=== PATIENT | male | born 1995 | race Caucasian/White ===

== ENCOUNTER 2018-05-23 14:00 | Emergency (ER) | payer OTHER ==
[~2018-05-23] VITALS: Ht 175.3 cm; Wt 86.4 kg
--- NOTE | 2018-05-23 15:12 | REP ---
Right ankle five views : There is no fracture or dislocation. Mineralization and joint spaces are normal. There are no calcifications or foreign bodies. Impression: Negative right ankle . Electronically Signed by Davidson Patrick MD 05/23/2018 03:03 P
--- NOTE | 2018-05-23 15:13 | REP ---
Right foot four views : There is no fracture or dislocation. Mineralization and joint spaces are normal. There are no calcifications or foreign bodies. Impression: Negative right foot . Electronically Signed by Davidson Patrick MD 05/23/2018 03:04 P
[2018-05-23] MEDS ORDERED: IBUP-1022 PO (16:33)
[2018-05-23 16:50] VITALS: BP 143/70
== END 2018-05-23 16:53 | disposition home or self-care (01) ==
LOC: M ED 14:00
DX: S99.911A Unspecified injury of right ankle, initial encounter (principal); W23.0XXA Caught, crushed, jammed, or pinched between moving objects, initial encounter; Y92.89 Other specified places as the place of occurrence of the external cause; Y93.9 Activity, unspecified; Y99.0 Civilian activity done for income or pay

== ENCOUNTER → 2019-05-23 | Outpatient (CLI) | payer BC ==
[~2019-05-23] MED LIST: IBUP-1022 PO
== END ==
LOC: M LABSMTC 12:21
PROVIDERS: ATTEND Family Medicine
DX: Z11.59 Encounter for screening for other viral diseases (principal); Z20.828 Contact with and (suspected) exposure to other viral communicable diseases

== ENCOUNTER → 2023-08-13 | Outpatient (CLI) | payer BC | LOC: M RAD 14:52 | PROVIDERS: ATTEND Student in an Organized Health Care Education/Training Program | DX: S00.33XA Contusion of nose, initial encounter (principal) ==

== ENCOUNTER → 2023-08-15 | Outpatient (CLI) | payer BC | LOC: M RAD 09:54 | PROVIDERS: ATTEND Student in an Organized Health Care Education/Training Program | DX: S02.2XXA Fracture of nasal bones, initial encounter for closed fracture (principal); Y93.9 Activity, unspecified; Y92.9 Unspecified place or not applicable ==